=== PATIENT | female | born 1940 | race African-American/Black ===

== ENCOUNTER 2020-07-15 17:13 | Inpatient (IN) ==
[2020-07-15] MEDS ORDERED: SODIUM CHLORIDE 0.9% 1,000 ML IV STA (17:40)
[2020-07-15 17:45] LABS: Basophils % 0.3 % (0.0-0.8); Hematocrit 31.9 VOL% (35.7-47.0); Hemoglobin 10.2 GM/DL (12.0-16.0); Immature Granulocytes % 0.4 %; Immature Granulocytes Absolute 0.03 #; Lymphocytes % 12.4 % (21.3-54.2); Mean Corpuscular Volume 81.2 FL (87-102); Mean Platelet Volume 9.2 FL (9.6-12.0); Monocytes % 6.1 % (1.7-12.7); Neutrophils % 80.8 % (38.7-73.9); Platelet Count 251 T/CUMM (130-400); Red Blood Count 3.93 MC/CUMM (3.8-5.5); Red Cell Distribution Width 14.1 % (9.3-17.3); White Blood Count 7.7 T/CUMM (4-12)
[2020-07-15] MEDS ORDERED: DEXAMETHASONE 10 MG/1 ML VIAL ONE (18:13)
[2020-07-15] MEDS: DEXAMETHASONE 10 MG/1 ML VIAL IV SCH (18:18)
[2020-07-15 18:44] LABS: Albumin 2.9 G/DL (3.4-5.0); Bilirubin,Total 0.7 MG/DL (0.2-1.0); Calcium 9.2 MG/DL (8.5-10.1); Ferritin 160.3 ng/ml (8-252); Osmolality,Calculated 276.8 MOS/KG (273-304); Total Protein 7.4 G/DL (6.4-8.3)
[2020-07-15] MEDS ORDERED: AZITHROMYCIN INJ 500 MG in SODIUM CHLORIDE 0.9% 250 ML IV STA (18:50)
[2020-07-15] MEDS ORDERED: cefTRIAXone 1,000 MG in SODIUM CHLORIDE 0.9% 100 ML IV STA (18:51)
[2020-07-15] MEDS ORDERED: GLUCAGON 1 MG VIAL IM PRN ×3 (19:47→19:52)
[2020-07-15] MEDS ORDERED: DEXTROSE 50% 25 GM/50 ML VIAL IV PRN ×3 (19:47→19:52)
[2020-07-15] MEDS ORDERED: DEXTROSE 50% 25 GM/50 ML SYRINGE IV PRN (19:59)
[2020-07-15] MEDS ORDERED: ENOXAPARIN 40 MG/0.4 ML SYRINGE SUBCUT SCH (21:00)
[2020-07-15] MEDS: INSULIN LISPRO 100 UNIT/ML SUBCUT SCH (22:10)
[2020-07-16 07:10] LABS: Basophils % 0.3 % (0.0-0.8); Hemoglobin 10.3 GM/DL (12.0-16.0); Immature Granulocytes % 0.3 %; Immature Granulocytes Absolute 0.02 #; Lymphocytes # 0.7 10*3/uL (1.4-4.0); Lymphocytes % 9.3 % (21.3-54.2); Mean Corpuscular HGB Conc 31.2 GM/DL (32-36); Mean Corpuscular Volume 81.7 FL (87-102); Mean Platelet Volume 9.9 FL (9.6-12.0); Neutrophils % 84.1 % (38.7-73.9); Platelet Count 254 T/CUMM (130-400); Red Blood Count 4.04 MC/CUMM (3.8-5.5); Red Cell Distribution Width 14.3 % (9.3-17.3); White Blood Count 7.5 T/CUMM (4-12)
[2020-07-16 07:27] LABS: Calcium 9.3 MG/DL (8.5-10.1); Osmolality,Calculated 281.4 MOS/KG (273-304)
[2020-07-16] MEDS: DEXAMETHASONE 10 MG/1 ML VIAL IV SCH (09:16)
[2020-07-16] MEDS: INSULIN LISPRO 100 UNIT/ML SUBCUT SCH ×4 (10:16→20:27)
[2020-07-16 11:40] LABS: Calcium 9.9 MG/DL (8.5-10.1); Osmolality,Calculated 286.4 MOS/KG (273-304)
[2020-07-16] MEDS ORDERED: FUROSEMIDE 40 MG/4 ML VIAL IV ONE (11:54)
[2020-07-16 13:48] LABS: Bacteria,Urine Occasional /HPF (Few); Bilirubin,Urine Negative (Negative); Blood, Urine Negative (Negative); Glucose,Urine (UA) Negative (Negative); Hyaline Casts,Urine 8 /LPF (0-3); Ketones,Urine Negative (Negative); Mucus,Urine Occasional /LPF (Occasional); Nitrite,Urine Negative (Negative); Protein,Urine 100 MG/DL; RBC,Urine 1 /HPF (0-4); Urine Appearance CLEAR (Clear); Urine Color Yellow (Yellow); Urine Specific Gravity 1.017 (1.001-1.035); Urine Urobilinogen < 2.0 EU/DL (0.2-1.0); WBC,Urine <1 /HPF (0-6)
[2020-07-16] MEDS ORDERED: AZITHROMYCIN INJ 250 MG in SODIUM CHLORIDE 0.9% 250 ML IV SCH (20:00)
[2020-07-16 20:29] LABS: Basophils % 0.1 % (0.0-0.8); Hematocrit 34.8 VOL% (35.7-47.0); Immature Granulocytes % 0.5 %; Immature Granulocytes Absolute 0.06 #; Lymphocytes # 0.5 10*3/uL (1.4-4.0); Lymphocytes % 4.5 % (21.3-54.2); Mean Corpuscular HGB Conc 31.6 GM/DL (32-36); Mean Corpuscular Volume 81.1 FL (87-102); Mean Platelet Volume 9.2 FL (9.6-12.0); Monocytes % 2.1 % (1.7-12.7); Neutrophils % 92.8 % (38.7-73.9); Platelet Count 300 T/CUMM (130-400); Red Blood Count 4.29 MC/CUMM (3.8-5.5); Red Cell Distribution Width 14.4 % (9.3-17.3); White Blood Count 12.1 T/CUMM (4-12)
[2020-07-16] MEDS: cefTRIAXone 1,000 MG in SYRINGE 1 EACH IV SCH (20:39)
[2020-07-16] MEDS: ENOXAPARIN 80 MG/0.8 ML SYRINGE SUBCUT SCH (20:39)
[2020-07-16 20:47] LABS: Osmolality,Calculated 284.4 MOS/KG (273-304)
[2020-07-16 20:49] LABS: Eosinophils 1 % (0-10); Lymphocytes 4 % (20-55); Microcytosis 1+; Segmented Neutrophils 94 % (50-85); Total Cells Counted 100
[2020-07-16 20:50] LABS: Burr Cells 1+; Platelet Estimate Normal; Polychromasia Slight
[2020-07-16] MEDS: AZITHROMYCIN INJ 250 MG in SODIUM CHLORIDE 0.9% 250 ML IV SCH (20:55)
[2020-07-16] MEDS ORDERED: DILTIAZEM 25 MG/5 ML VIAL IV ONE (20:56)
[2020-07-16] MEDS: dilTIAZem Drip 125 MG/125 ML PREMIX IV SCH (22:05)
[2020-07-17 02:06] LABS: Basophils % 0.2 % (0.0-0.8); Hematocrit 35.9 VOL% (35.7-47.0); Hemoglobin 11.4 GM/DL (12.0-16.0); Immature Granulocytes % 0.4 %; Immature Granulocytes Absolute 0.05 #; Lymphocytes # 0.6 10*3/uL (1.4-4.0); Lymphocytes % 4.9 % (21.3-54.2); Mean Corpuscular HGB Conc 31.8 GM/DL (32-36); Mean Corpuscular Volume 80.9 FL (87-102); Mean Platelet Volume 9.4 FL (9.6-12.0); Neutrophils % 90.5 % (38.7-73.9); Platelet Count 303 T/CUMM (130-400); Red Blood Count 4.44 MC/CUMM (3.8-5.5); Red Cell Distribution Width 14.3 % (9.3-17.3); White Blood Count 11.2 T/CUMM (4-12)
[2020-07-17 02:26] LABS: Calcium 10.2 MG/DL (8.5-10.1); Ferritin 291.6 ng/ml (8-252); Osmolality,Calculated 283.5 MOS/KG (273-304)
[2020-07-17 04:38] LABS: ABG Base Excess -5.1 MMOL/L (-2.5-2.5); ABG HCO3 20.1 MMOL/L (20-26); ABG Oxygen Saturation 91.7 % (95-100); ABG PCO2 31.9 MM HG (35-48); ABG PH 7.385 (7.35-7.45); ABG PO2 69.4 MM HG (80-95); ABG TCO2 17.2 MMOL/L (23-27); Allen Test Positive
[2020-07-17] MEDS: dilTIAZem Drip 125 MG/125 ML PREMIX IV SCH ×2 (05:10→19:25)
[2020-07-17] MEDS: INSULIN LISPRO 100 UNIT/ML SUBCUT SCH ×4 (08:04→20:49)
[2020-07-17] MEDS: ASCORBIC ACID 500 MG TABLET PO SCH (08:35)
[2020-07-17] MEDS: ATORVASTATIN 40 MG TABLET PO SCH (08:36)
[2020-07-17] MEDS: THIAMINE 100 MG TABLET PO SCH (08:36)
[2020-07-17] MEDS: DEXAMETHASONE 10 MG/1 ML VIAL IV SCH (08:36)
[2020-07-17] MEDS: FUROSEMIDE 20 MG TABLET PO SCH (08:36)
[2020-07-17] MEDS: amLODIPine 10 MG TABLET PO SCH (08:36)
[2020-07-17] MEDS: CHOLECALCIFEROL 400 UNIT TABLET PO SCH (08:36)
[2020-07-17] MEDS: ZINC SULFATE 220 MG CAPSULE PO SCH (08:36)
[2020-07-17] MEDS ORDERED: INFLUENZA VIRUS VACCINE 0.5 ML SYRINGE IM ONE (09:00)
[2020-07-17] MEDS ORDERED: POTASSIUM CHLORIDE 20 MEQ TABLET PO SCH (09:00)
[2020-07-17] MEDS: ACETAMINOPHEN 325 MG TABLET PO PRN (11:15)
[2020-07-17] MEDS ORDERED: DIGOXIN 0.5 MG/2 ML AMP IV ONE ×2 (11:25→12:25)
[2020-07-17] MEDS ORDERED: CLORAZEPATE 3.75 MG TABLET PO ONE (20:13)
[2020-07-17] MEDS: ENOXAPARIN 80 MG/0.8 ML SYRINGE SUBCUT SCH (20:49)
[2020-07-17] MEDS: AZITHROMYCIN INJ 250 MG in SODIUM CHLORIDE 0.9% 250 ML IV SCH (20:50)
[2020-07-17] MEDS: cefTRIAXone 1,000 MG in SYRINGE 1 EACH IV SCH (20:50)
[2020-07-17] MEDS ORDERED: PNEUMOCOCCAL VACCINE (13 VALENT) 0.5 ML SYRINGE IM ONE (22:00)
[2020-07-17] MEDS ORDERED: ETOMIDATE 20 MG/10 ML VIAL IV ONE ×2 (22:17→22:31)
[2020-07-17] MEDS ORDERED: ROCURONIUM 100 MG/10 ML VIAL IV ONE ×2 (22:17→22:32)
[2020-07-17] MEDS ORDERED: propofoL 200 MG/20 ML VIAL IV ONE ×2 (22:31→22:33)
[2020-07-17 22:59] LABS: ABG Base Excess -4.3 MMOL/L (-2.5-2.5); ABG HCO3 20.9 MMOL/L (20-26); ABG Oxygen Saturation 98.6 % (95-100); ABG PCO2 34.3 MM HG (35-48); ABG PH 7.377 (7.35-7.45); ABG TCO2 18.2 MMOL/L (23-27)
[2020-07-17] MEDS: PHENYLEPHRINE DRIP 40 MG/250 ML PREMIX IV PRN (23:35)
[2020-07-17] MEDS ORDERED: LORazepam 2 MG/1 ML VIAL IV ONE (23:40)
[2020-07-18] MEDS ORDERED: LORazepam 2 MG/1 ML VIAL IV PRN (01:51)
[2020-07-18 03:27] LABS: ABG Base Excess -3.9 MMOL/L (-2.5-2.5); ABG HCO3 21.2 MMOL/L (20-26); ABG Oxygen Saturation 99.7 % (95-100); ABG PCO2 37.4 MM HG (35-48); ABG PH 7.359 (7.35-7.45); Allen Test Positive; Pt O2 Delivery Device Ventilator
[2020-07-18 06:01] LABS: Basophils % 0.1 % (0.0-0.8); Hematocrit 35.4 VOL% (35.7-47.0); Hemoglobin 11.2 GM/DL (12.0-16.0); Immature Granulocytes % 0.8 %; Immature Granulocytes Absolute 0.11 #; Lymphocytes # 0.8 10*3/uL (1.4-4.0); Lymphocytes % 5.8 % (21.3-54.2); Mean Corpuscular HGB Conc 31.6 GM/DL (32-36); Mean Corpuscular Volume 81.6 FL (87-102); Mean Platelet Volume 10.2 FL (9.6-12.0); Monocytes % 5.9 % (1.7-12.7); Neutrophils % 87.4 % (38.7-73.9); Platelet Count 403 T/CUMM (130-400); Red Blood Count 4.34 MC/CUMM (3.8-5.5); Red Cell Distribution Width 14.6 % (9.3-17.3); White Blood Count 14.3 T/CUMM (4-12)
[2020-07-18 06:53] LABS: Calcium 9.9 MG/DL (8.5-10.1); Osmolality,Calculated 286.5 MOS/KG (273-304)
[2020-07-18] MEDS ORDERED: SODIUM CHLORIDE 0.9% 1,000 ML IV ONE (07:06)
[2020-07-18] MEDS: PHENYLEPHRINE DRIP 40 MG/250 ML PREMIX IV PRN (07:09)
[2020-07-18] MEDS ORDERED: SODIUM CHLORIDE 0.9% 500 ML IV ONE (07:10)
[2020-07-18] MEDS: INSULIN LISPRO 100 UNIT/ML SUBCUT SCH ×3 (07:46→17:07)
[2020-07-18] MEDS: ZINC SULFATE 220 MG CAPSULE PO SCH (08:14)
[2020-07-18] MEDS: POTASSIUM CHLORIDE 20 MEQ/15 ML UDCUP NG SCH (08:14)
[2020-07-18] MEDS: ATORVASTATIN 40 MG TABLET PO SCH (08:14)
[2020-07-18] MEDS: THIAMINE 100 MG TABLET PO SCH (08:15)
[2020-07-18] MEDS: FUROSEMIDE 20 MG TABLET PO SCH (08:15)
[2020-07-18] MEDS: DEXAMETHASONE 10 MG/1 ML VIAL IV SCH (08:15)
[2020-07-18] MEDS: CHOLECALCIFEROL 400 UNIT TABLET PO SCH (08:15)
[2020-07-18] MEDS: ASCORBIC ACID 500 MG TABLET PO SCH (08:15)
[2020-07-18] MEDS: amLODIPine 10 MG TABLET PO SCH ×2 (08:16→13:19)
[2020-07-18] MEDS: fentaNYL INJ 1,250 MCG in SODIUM CHLORIDE 0.9% 225 ML IV PRN ×3 (08:44→21:16)
[2020-07-18] MEDS: DIGOXIN 0.125 MG TABLET PO SCH (12:40)
[2020-07-18] MEDS: cefTRIAXone 1,000 MG in SYRINGE 1 EACH IV SCH (19:44)
[2020-07-18] MEDS: ENOXAPARIN 80 MG/0.8 ML SYRINGE SUBCUT SCH ×2 (19:44→20:12)
[2020-07-18] MEDS: dilTIAZem Drip 125 MG/125 ML PREMIX IV SCH (20:08)
[2020-07-18] MEDS: AZITHROMYCIN INJ 250 MG in SODIUM CHLORIDE 0.9% 250 ML IV SCH (20:12)
[2020-07-19] MEDS: INSULIN LISPRO 100 UNIT/ML SUBCUT SCH ×4 (00:08→17:23)
[2020-07-19 03:49] LABS: ABG Base Excess -5.2 MMOL/L (-2.5-2.5); ABG HCO3 20.1 MMOL/L (20-26); ABG Oxygen Saturation 98.4 % (95-100); ABG PCO2 41.3 MM HG (35-48); ABG TCO2 18.9 MMOL/L (23-27); Allen Test Positive; Pt O2 Delivery Device Ventilator
[2020-07-19 04:15] LABS: Basophils % 0.1 % (0.0-0.8); Hematocrit 32.3 VOL% (35.7-47.0); Immature Granulocytes % 0.6 %; Immature Granulocytes Absolute 0.05 #; Lymphocytes # 0.6 10*3/uL (1.4-4.0); Lymphocytes % 6.9 % (21.3-54.2); Mean Corpuscular Volume 84.6 FL (87-102); Mean Platelet Volume 9.7 FL (9.6-12.0); Neutrophils % 87.4 % (38.7-73.9); Platelet Count 318 T/CUMM (130-400); Red Blood Count 3.82 MC/CUMM (3.8-5.5); Red Cell Distribution Width 14.8 % (9.3-17.3); White Blood Count 8.8 T/CUMM (4-12)
[2020-07-19 04:35] LABS: Calcium 9.6 MG/DL (8.5-10.1); Osmolality,Calculated 292.1 MOS/KG (273-304)
[2020-07-19 04:38] LABS: Ferritin 1091.3 ng/ml (8-252)
[2020-07-19] MEDS: ATORVASTATIN 40 MG TABLET PO SCH (08:15)
[2020-07-19] MEDS: ZINC SULFATE 220 MG CAPSULE PO SCH (08:15)
[2020-07-19] MEDS: THIAMINE 100 MG TABLET PO SCH (08:15)
[2020-07-19] MEDS: POTASSIUM CHLORIDE 20 MEQ/15 ML UDCUP NG SCH (08:15)
[2020-07-19] MEDS: ASCORBIC ACID 500 MG TABLET PO SCH (08:15)
[2020-07-19] MEDS: CHOLECALCIFEROL 400 UNIT TABLET PO SCH (08:15)
[2020-07-19] MEDS: FUROSEMIDE 20 MG TABLET PO SCH (08:15)
[2020-07-19] MEDS: amLODIPine 10 MG TABLET PO SCH (08:15)
[2020-07-19] MEDS: DEXAMETHASONE 10 MG/1 ML VIAL IV SCH (08:16)
[2020-07-19] MEDS ORDERED: SODIUM CHLORIDE 0.9% 1,000 ML IV PRN (11:17)
[2020-07-19] MEDS: DIGOXIN 0.125 MG TABLET PO SCH (12:03)
[2020-07-19] MEDS: fentaNYL INJ 1,250 MCG in SODIUM CHLORIDE 0.9% 225 ML IV PRN (19:17)
[2020-07-19] MEDS: ENOXAPARIN 80 MG/0.8 ML SYRINGE SUBCUT SCH (20:03)
[2020-07-19] MEDS: AZITHROMYCIN INJ 250 MG in SODIUM CHLORIDE 0.9% 250 ML IV SCH (20:03)
[2020-07-19] MEDS: cefTRIAXone 1,000 MG in SYRINGE 1 EACH IV SCH (20:45)
[2020-07-19] MEDS: dilTIAZem Drip 125 MG/125 ML PREMIX IV SCH (21:15)
[2020-07-20] MEDS: INSULIN LISPRO 100 UNIT/ML SUBCUT SCH ×5 (00:33→23:48)
[2020-07-20 05:07] LABS: Basophils % 0.1 % (0.0-0.8); Hematocrit 34.1 VOL% (35.7-47.0); Hemoglobin 10.6 GM/DL (12.0-16.0); Immature Granulocytes % 1.4 %; Immature Granulocytes Absolute 0.17 #; Lymphocytes # 0.9 10*3/uL (1.4-4.0); Lymphocytes % 7.2 % (21.3-54.2); Mean Corpuscular HGB Conc 31.1 GM/DL (32-36); Mean Corpuscular Volume 83.4 FL (87-102); Mean Platelet Volume 10.1 FL (9.6-12.0); Monocytes % 5.2 % (1.7-12.7); NRBC # 0.02 10*3/uL; Neutrophils % 86.1 % (38.7-73.9); Platelet Count 389 T/CUMM (130-400); Red Blood Count 4.09 MC/CUMM (3.8-5.5); White Blood Count 12.6 T/CUMM (4-12)
[2020-07-20] MEDS: fentaNYL INJ 1,250 MCG in SODIUM CHLORIDE 0.9% 225 ML IV PRN ×3 (05:16→20:40)
[2020-07-20 05:23] LABS: ABG Base Excess -4.6 MMOL/L (-2.5-2.5); ABG HCO3 20.6 MMOL/L (20-26); ABG Oxygen Saturation 96.3 % (95-100); ABG PCO2 45.6 MM HG (35-48); ABG PO2 96.8 MM HG (80-95); ABG TCO2 20.3 MMOL/L (23-27); Allen Test Positive; Pt O2 Delivery Device Ventilator
[2020-07-20 05:24] LABS: Calcium 9.2 MG/DL (8.5-10.1)
[2020-07-20 05:48] LABS: Ferritin 1150.8 ng/ml (8-252)
[2020-07-20] MEDS: ZINC SULFATE 220 MG CAPSULE PO SCH (08:17)
[2020-07-20] MEDS: FUROSEMIDE 20 MG TABLET PO SCH (08:18)
[2020-07-20] MEDS: amLODIPine 10 MG TABLET PO SCH (08:18)
[2020-07-20] MEDS: ATORVASTATIN 40 MG TABLET PO SCH (08:18)
[2020-07-20] MEDS: THIAMINE 100 MG TABLET PO SCH (08:18)
[2020-07-20] MEDS: CHOLECALCIFEROL 400 UNIT TABLET PO SCH (08:18)
[2020-07-20] MEDS: ACETAMINOPHEN 325 MG TABLET PO PRN (08:19)
[2020-07-20] MEDS: ASCORBIC ACID 500 MG TABLET PO SCH (08:19)
[2020-07-20] MEDS: DEXAMETHASONE 10 MG/1 ML VIAL IV SCH (08:20)
[2020-07-20] MEDS ORDERED: SODIUM CHLORIDE 0.9% 1,000 ML IV ONE (11:19)
[2020-07-20] MEDS: DIGOXIN 0.125 MG TABLET PO SCH (13:18)
[2020-07-20] MEDS: VANCOMYCIN INJ 1,250 MG in SODIUM CHLORIDE 0.9% 250 ML IV SCH (14:42)
[2020-07-20] MEDS: dilTIAZem Drip 125 MG/125 ML PREMIX IV SCH (20:41)
[2020-07-20] MEDS: ENOXAPARIN 80 MG/0.8 ML SYRINGE SUBCUT SCH (20:51)
[2020-07-20] MEDS: cefTRIAXone 1,000 MG in SYRINGE 1 EACH IV SCH (20:51)
[2020-07-20] MEDS: AMIODARONE 200 MG TABLET PO SCH (20:51)
[2020-07-21] MEDS: fentaNYL INJ 1,250 MCG in SODIUM CHLORIDE 0.9% 225 ML IV PRN ×3 (03:35→12:55)
[2020-07-21 04:33] LABS: Allen Test Positive; Pt O2 Delivery Device Ventilator
[2020-07-21 04:35] LABS: ABG Base Excess -4.2 MMOL/L (-2.5-2.5); ABG HCO3 20.8 MMOL/L (20-26); ABG Oxygen Saturation 92.4 % (95-100); ABG PCO2 43.2 MM HG (35-48); ABG PH 7.311 (7.35-7.45); ABG PO2 72.2 MM HG (80-95); ABG TCO2 20.2 MMOL/L (23-27)
[2020-07-21 04:49] LABS: Basophils % 0.1 % (0.0-0.8); Eosinophils % 0.2 % (0.00-10.9); Hematocrit 31.2 VOL% (35.7-47.0); Hemoglobin 9.5 GM/DL (12.0-16.0); Immature Granulocytes % 2.3 %; Immature Granulocytes Absolute 0.24 #; Lymphocytes # 0.7 10*3/uL (1.4-4.0); Lymphocytes % 6.4 % (21.3-54.2); Mean Corpuscular HGB Conc 30.4 GM/DL (32-36); Mean Corpuscular Volume 83.6 FL (87-102); Mean Platelet Volume 9.5 FL (9.6-12.0); Monocytes % 3.9 % (1.7-12.7); NRBC # 0.02 10*3/uL; Neutrophils % 87.1 % (38.7-73.9); Platelet Count 334 T/CUMM (130-400); Red Blood Count 3.73 MC/CUMM (3.8-5.5); Red Cell Distribution Width 15.4 % (9.3-17.3); White Blood Count 10.5 T/CUMM (4-12)
[2020-07-21 05:21] LABS: Calcium 8.8 MG/DL (8.5-10.1); Osmolality,Calculated 302.6 MOS/KG (273-304)
[2020-07-21] MEDS: INSULIN LISPRO 100 UNIT/ML SUBCUT SCH ×3 (06:07→18:09)
[2020-07-21] MEDS: CHOLECALCIFEROL 400 UNIT TABLET PO SCH (08:36)
[2020-07-21] MEDS: amLODIPine 10 MG TABLET PO SCH (08:36)
[2020-07-21] MEDS: ATORVASTATIN 40 MG TABLET PO SCH (08:36)
[2020-07-21] MEDS: FUROSEMIDE 20 MG TABLET PO SCH (08:36)
[2020-07-21] MEDS: ASCORBIC ACID 500 MG TABLET PO SCH (08:36)
[2020-07-21] MEDS: ZINC SULFATE 220 MG CAPSULE PO SCH (08:36)
[2020-07-21] MEDS: THIAMINE 100 MG TABLET PO SCH (08:36)
[2020-07-21] MEDS: AMIODARONE 200 MG TABLET PO SCH ×2 (08:36→20:30)
[2020-07-21] MEDS: DEXAMETHASONE 10 MG/1 ML VIAL IV SCH (08:37)
[2020-07-21] MEDS ORDERED: METOPROLOL TARTRATE 5 MG/5 ML VIAL IV ONE (08:44)
[2020-07-21] MEDS: VANCOMYCIN INJ 1,250 MG in SODIUM CHLORIDE 0.9% 250 ML IV SCH (09:51)
[2020-07-21] MEDS: METOPROLOL TARTRATE 25 MG TABLET PO SCH ×2 (12:20→20:30)
[2020-07-21] MEDS: fentaNYL INJ 2,500 MCG in SODIUM CHLORIDE 0.9% 450 ML IV PRN ×2 (12:55→20:20)
[2020-07-21] MEDS: DIGOXIN 0.125 MG TABLET PO SCH (15:08)
[2020-07-21] MEDS: ROCURONIUM 500 MG in SODIUM CHLORIDE 0.9% 500 ML IV PRN (16:00)
[2020-07-21] MEDS: cefTRIAXone 1,000 MG in SYRINGE 1 EACH IV SCH (20:30)
[2020-07-21] MEDS: ENOXAPARIN 80 MG/0.8 ML SYRINGE SUBCUT SCH (20:30)
[2020-07-21] MEDS: dilTIAZem Drip 125 MG/125 ML PREMIX IV SCH (21:36)
[2020-07-22] MEDS: INSULIN LISPRO 100 UNIT/ML SUBCUT SCH ×4 (00:32→17:56)
[2020-07-22] MEDS: fentaNYL INJ 2,500 MCG in SODIUM CHLORIDE 0.9% 450 ML IV PRN ×4 (02:15→21:27)
[2020-07-22 04:00] LABS: Basophils % 0.1 % (0.0-0.8); Eosinophils # 0.1 10*3/uL (0.0-0.87); Eosinophils % 1.2 % (0.00-10.9); Hematocrit 28.3 VOL% (35.7-47.0); Hemoglobin 8.8 GM/DL (12.0-16.0); Immature Granulocytes % 5.5 %; Lymphocytes # 0.7 10*3/uL (1.4-4.0); Lymphocytes % 6.5 % (21.3-54.2); Mean Corpuscular HGB Conc 31.1 GM/DL (32-36); Mean Platelet Volume 9.5 FL (9.6-12.0); Monocytes % 2.6 % (1.7-12.7); NRBC # 0.02 10*3/uL; Neutrophils % 84.1 % (38.7-73.9); Platelet Count 283 T/CUMM (130-400); Red Blood Count 3.29 MC/CUMM (3.8-5.5); White Blood Count 10.9 T/CUMM (4-12)
[2020-07-22 04:20] LABS: Calcium 8.3 MG/DL (8.5-10.1); Osmolality,Calculated 301.7 MOS/KG (273-304)
[2020-07-22 04:21] LABS: Band Neutrophils 2 % (0-10); Lymphocytes 4 % (20-55); Platelet Estimate Adequate; Segmented Neutrophils 90 % (50-85); Total Cells Counted 100
[2020-07-22 04:22] LABS: Hypochromasia 1+; Microcytosis 1+
[2020-07-22 04:26] LABS: ABG Base Excess -6.6 MMOL/L (-2.5-2.5); ABG HCO3 20.4 MMOL/L (20-26); ABG Oxygen Saturation 98.2 % (95-100); ABG PCO2 48.1 MM HG (35-48); ABG PH 7.246 (7.35-7.45); ABG PO2 132.9 MM HG (80-95); ABG TCO2 21.9 MMOL/L (23-27)
[2020-07-22] MEDS: ROCURONIUM 500 MG in SODIUM CHLORIDE 0.9% 500 ML IV PRN ×2 (04:45→18:48)
[2020-07-22 04:50] LABS: Ferritin 989.7 ng/ml (8-252)
[2020-07-22] MEDS: THIAMINE 100 MG TABLET PO SCH (08:24)
[2020-07-22] MEDS: AMIODARONE 200 MG TABLET PO SCH ×2 (08:24→21:03)
[2020-07-22] MEDS: ZINC SULFATE 220 MG CAPSULE PO SCH (08:24)
[2020-07-22] MEDS: FUROSEMIDE 20 MG TABLET PO SCH (08:25)
[2020-07-22] MEDS: ASCORBIC ACID 500 MG TABLET PO SCH (08:25)
[2020-07-22] MEDS: METOPROLOL TARTRATE 25 MG TABLET PO SCH ×2 (08:25→21:03)
[2020-07-22] MEDS: ATORVASTATIN 40 MG TABLET PO SCH (08:25)
[2020-07-22] MEDS: amLODIPine 10 MG TABLET PO SCH (08:25)
[2020-07-22] MEDS: DEXAMETHASONE 10 MG/1 ML VIAL IV SCH (08:26)
[2020-07-22] MEDS: CHOLECALCIFEROL 400 UNIT TABLET PO SCH (08:30)
[2020-07-22] MEDS: DIGOXIN 0.125 MG TABLET PO SCH (12:29)
[2020-07-22] MEDS: ENOXAPARIN 100 MG/ML SYRINGE SUBCUT SCH (13:17)
[2020-07-22] MEDS: PHENYLEPHRINE DRIP 40 MG/250 ML PREMIX IV PRN (13:58)
[2020-07-22] MEDS: cefTRIAXone 1,000 MG in SYRINGE 1 EACH IV SCH (19:48)
[2020-07-23] MEDS: INSULIN LISPRO 100 UNIT/ML SUBCUT SCH ×4 (00:25→17:37)
[2020-07-23] MEDS: ENOXAPARIN 100 MG/ML SYRINGE SUBCUT SCH ×2 (00:26→11:59)
[2020-07-23 03:49] LABS: Allen Test Positive; Pt O2 Delivery Device Ventilator
[2020-07-23 03:50] LABS: ABG Base Excess -8.8 MMOL/L (-2.5-2.5); ABG HCO3 17.3 MMOL/L (20-26); ABG Oxygen Saturation 99.5 % (95-100); ABG PCO2 46.4 MM HG (35-48); ABG PH 7.216 (7.35-7.45); ABG TCO2 17.7 MMOL/L (23-27)
[2020-07-23] MEDS: fentaNYL INJ 2,500 MCG in SODIUM CHLORIDE 0.9% 450 ML IV PRN ×3 (03:53→16:50)
[2020-07-23] MEDS: PHENYLEPHRINE DRIP 40 MG/250 ML PREMIX IV PRN ×2 (05:54→21:30)
[2020-07-23] MEDS: ROCURONIUM 500 MG in SODIUM CHLORIDE 0.9% 500 ML IV PRN (06:12)
[2020-07-23 06:34] LABS: Basophils # 0.1 10*3/uL (0.0-0.2); Basophils % 0.4 % (0.0-0.8); Eosinophils # 0.3 10*3/uL (0.0-0.87); Eosinophils % 2.3 % (0.00-10.9); Hematocrit 31.3 VOL% (35.7-47.0); Hemoglobin 9.4 GM/DL (12.0-16.0); Immature Granulocytes % 7.3 %; Immature Granulocytes Absolute 1.03 #; Lymphocytes # 0.9 10*3/uL (1.4-4.0); Lymphocytes % 6.6 % (21.3-54.2); Mean Corpuscular Volume 86.7 FL (87-102); Mean Platelet Volume 10.1 FL (9.6-12.0); Monocytes % 2.4 % (1.7-12.7); NRBC # 0.08 10*3/uL; Platelet Count 359 T/CUMM (130-400); Red Blood Count 3.61 MC/CUMM (3.8-5.5); Red Cell Distribution Width 16.6 % (9.3-17.3)
[2020-07-23 06:53] LABS: Calcium 8.8 MG/DL (8.5-10.1)
[2020-07-23 07:15] LABS: Band Neutrophils 2 % (0-10); Eosinophils 6 % (0-10); Hypochromasia Slight; Lymphocytes 6 % (20-55); Microcytosis 1+; Myelocytes 1 %; Ovalocytes Slight; Platelet Estimate Adequate; Segmented Neutrophils 85 % (50-85); Total Cells Counted 100
[2020-07-23] MEDS ORDERED: SODIUM BICARBONATE 50 MEQ/50 ML VIAL IV ONE (08:07)
[2020-07-23] MEDS: ATORVASTATIN 40 MG TABLET PO SCH (09:30)
[2020-07-23] MEDS: DEXAMETHASONE 10 MG/1 ML VIAL IV SCH (09:30)
[2020-07-23] MEDS: ZINC SULFATE 220 MG CAPSULE PO SCH (09:30)
[2020-07-23] MEDS: CHOLECALCIFEROL 400 UNIT TABLET PO SCH (09:30)
[2020-07-23] MEDS: ACETAMINOPHEN 325 MG TABLET PO PRN (09:30)
[2020-07-23] MEDS: ASCORBIC ACID 500 MG TABLET PO SCH (09:30)
[2020-07-23] MEDS: THIAMINE 100 MG TABLET PO SCH (09:30)
[2020-07-23] MEDS: METOPROLOL TARTRATE 25 MG TABLET PO SCH ×2 (09:30→20:31)
[2020-07-23] MEDS: AMIODARONE 200 MG TABLET PO SCH ×2 (09:30→20:31)
[2020-07-23 11:58] LABS: ABG Base Excess -7.4 MMOL/L (-2.5-2.5); ABG HCO3 18.4 MMOL/L (20-26); ABG Oxygen Saturation 99.2 % (95-100); ABG PCO2 46.7 MM HG (35-48); ABG PH 7.236 (7.35-7.45); ABG TCO2 18.7 MMOL/L (23-27)
[2020-07-23 12:00] LABS: ABG PO2 188.7 MM HG (80-95)
[2020-07-23] MEDS: DIGOXIN 0.125 MG TABLET PO SCH (12:00)
[2020-07-23] MEDS: FLUCONAZOLE 200 MG TABLET PO SCH (15:52)
[2020-07-23] MEDS: SODIUM BICARBONATE 650 MG TABLET PO SCH ×2 (15:52→20:31)
[2020-07-23 23:36] LABS: Bacteria,Urine Occasional /HPF (Few); Bilirubin,Urine Negative (Negative); Blood, Urine Negative (Negative); Glucose,Urine (UA) Negative (Negative); Hyaline Casts,Urine 1 /LPF (0-3); Ketones,Urine Negative (Negative); Mucus,Urine Occasional /LPF (Occasional); Nitrite,Urine Negative (Negative); Protein,Urine 30 MG/DL; RBC,Urine 2 /HPF (0-4); Squamous Epithelial Cell,Urine Occasional /HPF (0-10); Urine Appearance Slightly Hazy (Clear); Urine Color Yellow (Yellow); Urine Specific Gravity 1.017 (1.001-1.035); Urine Urobilinogen < 2.0 EU/DL (0.2-1.0); WBC,Urine 2 /HPF (0-6)
[2020-07-24] MEDS: INSULIN LISPRO 100 UNIT/ML SUBCUT SCH ×4 (00:29→17:44)
[2020-07-24] MEDS: ENOXAPARIN 100 MG/ML SYRINGE SUBCUT SCH ×2 (01:09→12:39)
[2020-07-24] MEDS: fentaNYL INJ 2,500 MCG in SODIUM CHLORIDE 0.9% 450 ML IV PRN ×2 (03:00→23:44)
[2020-07-24 04:08] LABS: Basophils % 0.2 % (0.0-0.8); Eosinophils # 0.2 10*3/uL (0.0-0.87); Eosinophils % 0.9 % (0.00-10.9); Hematocrit 30.6 VOL% (35.7-47.0); Hemoglobin 9.5 GM/DL (12.0-16.0); Immature Granulocytes % 6.7 %; Immature Granulocytes Absolute 1.21 #; Lymphocytes # 1.5 10*3/uL (1.4-4.0); Lymphocytes % 8.2 % (21.3-54.2); Monocytes % 3.7 % (1.7-12.7); NRBC # 0.07 10*3/uL; Neutrophils % 80.3 % (38.7-73.9); Platelet Count 372 T/CUMM (130-400); Red Cell Distribution Width 17.1 % (9.3-17.3); White Blood Count 17.9 T/CUMM (4-12)
[2020-07-24 04:22] LABS: ABG HCO3 19.3 MMOL/L (20-26); ABG Oxygen Saturation 91.3 % (95-100); ABG PCO2 53.8 MM HG (35-48); ABG PO2 74.3 MM HG (80-95); Allen Test Positive; Pt O2 Delivery Device Ventilator
[2020-07-24 04:23] LABS: ABG PH 7.173 (7.35-7.45)
[2020-07-24] MEDS ORDERED: SODIUM BICARBONATE 50 MEQ/50 ML VIAL IV ONE (04:27)
[2020-07-24 04:29] LABS: Band Neutrophils 2 % (0-10); Eosinophils 2 % (0-10); Lymphocytes 10 % (20-55); Nucleated Red Blood Cells 1 (0-5); Segmented Neutrophils 82 % (50-85); Total Cells Counted 100
[2020-07-24 04:30] LABS: Hypochromasia 1+; Microcytosis 1+; Ovalocytes Slight; Platelet Estimate Adequate
[2020-07-24 04:59] LABS: Calcium 8.5 MG/DL (8.5-10.1); Osmolality,Calculated 313.7 MOS/KG (273-304)
[2020-07-24 07:27] LABS: ABG Base Excess -7.1 MMOL/L (-2.5-2.5); ABG HCO3 18.6 MMOL/L (20-26); ABG Oxygen Saturation 93.9 % (95-100); ABG PCO2 54.8 MM HG (35-48); ABG PO2 84.3 MM HG (80-95); ABG TCO2 20.1 MMOL/L (23-27)
[2020-07-24 07:30] LABS: ABG PH 7.197 (7.35-7.45)
[2020-07-24] MEDS ORDERED: SODIUM POLYSTYRENE SULFATE 15 GM/60 ML BOTTLE PO ONE (07:35)
[2020-07-24] MEDS: THIAMINE 100 MG TABLET PO SCH (08:17)
[2020-07-24] MEDS: SODIUM BICARBONATE 650 MG TABLET PO SCH ×2 (08:17→20:18)
[2020-07-24] MEDS: DEXAMETHASONE 10 MG/1 ML VIAL IV SCH (08:17)
[2020-07-24] MEDS: ASCORBIC ACID 500 MG TABLET PO SCH (08:17)
[2020-07-24] MEDS: ATORVASTATIN 40 MG TABLET PO SCH (08:17)
[2020-07-24] MEDS: CHOLECALCIFEROL 400 UNIT TABLET PO SCH (08:17)
[2020-07-24] MEDS: ZINC SULFATE 220 MG CAPSULE PO SCH (08:18)
[2020-07-24] MEDS: METOPROLOL TARTRATE 25 MG TABLET PO SCH ×2 (08:18→20:18)
[2020-07-24] MEDS: AMIODARONE 200 MG TABLET PO SCH ×2 (08:18→20:18)
[2020-07-24] MEDS: FLUCONAZOLE 200 MG TABLET PO SCH (09:11)
[2020-07-24] MEDS: SODIUM BICARB INJ 100 MEQ in DEXTROSE 5% 1,000 ML IV SCH (09:30)
[2020-07-24] MEDS: FAMOTIDINE 20 MG/2 ML VIAL IV SCH (09:30)
[2020-07-24] MEDS: DIGOXIN 0.125 MG TABLET PO SCH (12:39)
[2020-07-24] MEDS: PIPERACILLIN/TAZOBACTAM 3,375 MG in SODIUM CHLORIDE 0.9% 100 ML IV SCH (17:43)
[2020-07-24] MEDS: methylPREDNISolone SOD SUC 40 MG/1 ML VIAL IV SCH (17:43)
[2020-07-25] MEDS: PIPERACILLIN/TAZOBACTAM 3,375 MG in SODIUM CHLORIDE 0.9% 100 ML IV SCH ×3 (00:45→16:49)
[2020-07-25] MEDS: INSULIN LISPRO 100 UNIT/ML SUBCUT SCH ×4 (00:45→17:30)
[2020-07-25] MEDS: methylPREDNISolone SOD SUC 40 MG/1 ML VIAL IV SCH ×3 (00:45→16:50)
[2020-07-25] MEDS: ENOXAPARIN 100 MG/ML SYRINGE SUBCUT SCH (00:45)
[2020-07-25 04:34] LABS: ABG Base Excess -4.3 MMOL/L (-2.5-2.5); ABG HCO3 20.8 MMOL/L (20-26); ABG Oxygen Saturation 94.9 % (95-100); ABG PCO2 58.1 MM HG (35-48); ABG TCO2 22.6 MMOL/L (23-27); Allen Test Positive; Pt O2 Delivery Device Ventilator
[2020-07-25 04:46] LABS: Basophils % 0.2 % (0.0-0.8); Eosinophils % 0.1 % (0.00-10.9); Hematocrit 25.7 VOL% (35.7-47.0); Hemoglobin 8.2 GM/DL (12.0-16.0); Immature Granulocytes Absolute 0.85 #; Lymphocytes # 0.6 10*3/uL (1.4-4.0); Lymphocytes % 3.4 % (21.3-54.2); Mean Corpuscular HGB Conc 31.9 GM/DL (32-36); Mean Corpuscular Volume 82.6 FL (87-102); Mean Platelet Volume 11.1 FL (9.6-12.0); Monocytes % 3.3 % (1.7-12.7); NRBC # 0.03 10*3/uL; Platelet Count 262 T/CUMM (130-400); Red Blood Count 3.11 MC/CUMM (3.8-5.5); Red Cell Distribution Width 17.2 % (9.3-17.3)
[2020-07-25 05:03] LABS: Band Neutrophils 1 % (0-10); Hypochromasia 1+; Lymphocytes 4 % (20-55); Microcytosis Slight; Ovalocytes Slight; Platelet Estimate Adequate; Segmented Neutrophils 93 % (50-85); Total Cells Counted 100
[2020-07-25 05:18] LABS: Calcium 8.6 MG/DL (8.5-10.1); Osmolality,Calculated 318.6 MOS/KG (273-304)
[2020-07-25] MEDS: SODIUM BICARBONATE 650 MG TABLET PO SCH ×2 (08:02→20:50)
[2020-07-25] MEDS: ASCORBIC ACID 500 MG TABLET PO SCH (08:02)
[2020-07-25] MEDS: CHOLECALCIFEROL 400 UNIT TABLET PO SCH (08:02)
[2020-07-25] MEDS: FLUCONAZOLE 200 MG TABLET PO SCH (08:03)
[2020-07-25] MEDS: THIAMINE 100 MG TABLET PO SCH (08:03)
[2020-07-25] MEDS: AMIODARONE 200 MG TABLET PO SCH ×2 (08:03→20:50)
[2020-07-25] MEDS: ZINC SULFATE 220 MG CAPSULE PO SCH (08:03)
[2020-07-25] MEDS: METOPROLOL TARTRATE 25 MG TABLET PO SCH ×2 (08:03→20:49)
[2020-07-25] MEDS: ATORVASTATIN 40 MG TABLET PO SCH (08:03)
[2020-07-25] MEDS: SODIUM BICARB INJ 100 MEQ in DEXTROSE 5% 1,000 ML IV SCH (09:02)
[2020-07-25] MEDS: FAMOTIDINE 20 MG/2 ML VIAL IV SCH (09:56)
[2020-07-25] MEDS: APIXABAN 5 MG TABLET NG SCH ×2 (09:57→20:49)
[2020-07-25] MEDS: DIGOXIN 0.125 MG TABLET PO SCH (12:38)
[2020-07-25] MEDS ORDERED: INSULIN GLARGINE 100 UNIT/ML SUBCUT SCH (21:00)
[2020-07-25] MEDS: fentaNYL INJ 2,500 MCG in SODIUM CHLORIDE 0.9% 450 ML IV PRN (21:56)
[2020-07-26] MEDS: INSULIN LISPRO 100 UNIT/ML SUBCUT SCH ×4 (00:37→17:41)
[2020-07-26] MEDS: PIPERACILLIN/TAZOBACTAM 3,375 MG in SODIUM CHLORIDE 0.9% 100 ML IV SCH ×3 (00:38→16:33)
[2020-07-26] MEDS: methylPREDNISolone SOD SUC 40 MG/1 ML VIAL IV SCH ×3 (00:38→16:32)
[2020-07-26 03:59] LABS: Basophils % 0.1 % (0.0-0.8); Eosinophils % 0.1 % (0.00-10.9); Hematocrit 21.2 VOL% (35.7-47.0); Immature Granulocytes % 3.5 %; Immature Granulocytes Absolute 0.58 #; Lymphocytes # 0.6 10*3/uL (1.4-4.0); Lymphocytes % 3.8 % (21.3-54.2); Mean Corpuscular Volume 81.9 FL (87-102); Mean Platelet Volume 10.7 FL (9.6-12.0); Monocytes % 2.9 % (1.7-12.7); NRBC # 0.05 10*3/uL; Neutrophils % 89.6 % (38.7-73.9); Platelet Count 293 T/CUMM (130-400); Red Blood Count 2.59 MC/CUMM (3.8-5.5); Red Cell Distribution Width 16.8 % (9.3-17.3); White Blood Count 16.7 T/CUMM (4-12)
[2020-07-26 04:16] LABS: Calcium 8.3 MG/DL (8.5-10.1); Osmolality,Calculated 318.7 MOS/KG (273-304)
[2020-07-26 04:23] LABS: Band Neutrophils 6 % (0-10); Hypochromasia 2+; Lymphocytes 4 % (20-55); Microcytosis 1+; Myelocytes 1 %; Ovalocytes Slight; Platelet Estimate Adequate; Segmented Neutrophils 86 % (50-85); Total Cells Counted 100
[2020-07-26 04:26] LABS: ABG Base Excess -2.5 MMOL/L (-2.5-2.5); ABG Oxygen Saturation 79.2 % (95-100); ABG PCO2 63.6 MM HG (35-48); ABG PH 7.222 (7.35-7.45); ABG PO2 53.7 MM HG (80-95); ABG TCO2 24.7 MMOL/L (23-27); Allen Test Positive; Pt O2 Delivery Device Ventilator
[2020-07-26] MEDS: SODIUM BICARB INJ 100 MEQ in DEXTROSE 5% 1,000 ML IV SCH ×2 (05:04→09:08)
[2020-07-26 07:00] LABS: Bilirubin,Total 0.4 MG/DL (0.2-1.0); Calcium 8.5 MG/DL (8.5-10.1); Osmolality,Calculated 324.3 MOS/KG (273-304); Total Protein 5.9 G/DL (6.4-8.3)
[2020-07-26] MEDS ORDERED: SODIUM CHLORIDE 0.9% 1,000 ML IV PRN (07:26)
[2020-07-26] MEDS: SODIUM BICARBONATE 650 MG TABLET PO SCH ×2 (08:35→20:59)
[2020-07-26] MEDS: CHOLECALCIFEROL 400 UNIT TABLET PO SCH (08:35)
[2020-07-26] MEDS: APIXABAN 5 MG TABLET NG SCH (08:35)
[2020-07-26] MEDS: ASCORBIC ACID 500 MG TABLET PO SCH (08:35)
[2020-07-26] MEDS: THIAMINE 100 MG TABLET PO SCH (08:35)
[2020-07-26] MEDS: AMIODARONE 200 MG TABLET PO SCH ×2 (08:35→21:00)
[2020-07-26] MEDS: ATORVASTATIN 40 MG TABLET PO SCH (08:35)
[2020-07-26] MEDS: ZINC SULFATE 220 MG CAPSULE PO SCH (08:35)
[2020-07-26] MEDS: METOPROLOL TARTRATE 25 MG TABLET PO SCH ×2 (08:36→21:00)
[2020-07-26] MEDS: FAMOTIDINE 20 MG/2 ML VIAL IV SCH (08:41)
[2020-07-26] MEDS: FLUCONAZOLE 200 MG TABLET PO SCH (10:53)
[2020-07-26] MEDS: POLYETHYLENE GLYCOL POWDER 17 GM PACK PO SCH (12:11)
[2020-07-26] MEDS: DIGOXIN 0.125 MG TABLET PO SCH (12:11)
[2020-07-26 15:19] LABS: Hematocrit 26.2 VOL% (35.7-47.0)
[2020-07-26 15:20] LABS: Hemoglobin 8.7 GM/DL (12.0-16.0)
[2020-07-26] MEDS ORDERED: PANTOPRAZOLE 40 MG VIAL IV ONE (17:31)
[2020-07-26] MEDS: PANTOPRAZOLE 40 MG VIAL IV SCH ×2 (17:42→20:59)
[2020-07-26] MEDS: fentaNYL INJ 2,500 MCG in SODIUM CHLORIDE 0.9% 450 ML IV PRN (18:47)
[2020-07-26] MEDS: INSULIN GLARGINE 100 UNIT/ML SUBCUT SCH (20:59)
[2020-07-26 21:07] LABS: Hematocrit 25.4 VOL% (35.7-47.0); Hemoglobin 8.5 GM/DL (12.0-16.0)
[2020-07-27] MEDS: INSULIN LISPRO 100 UNIT/ML SUBCUT SCH ×4 (00:37→17:02)
[2020-07-27] MEDS: PIPERACILLIN/TAZOBACTAM 3,375 MG in SODIUM CHLORIDE 0.9% 100 ML IV SCH ×3 (00:38→16:06)
[2020-07-27] MEDS: methylPREDNISolone SOD SUC 40 MG/1 ML VIAL IV SCH ×3 (00:38→16:04)
[2020-07-27] MEDS: SODIUM BICARB INJ 100 MEQ in DEXTROSE 5% 1,000 ML IV SCH ×2 (02:22→09:51)
[2020-07-27 03:19] LABS: Allen Test Positive; Pt O2 Delivery Device Ventilator
[2020-07-27 03:20] LABS: ABG Base Excess -3.4 MMOL/L (-2.5-2.5); ABG HCO3 21.5 MMOL/L (20-26); ABG Oxygen Saturation 91.3 % (95-100); ABG PCO2 59.6 MM HG (35-48); ABG PH 7.224 (7.35-7.45); ABG PO2 73.9 MM HG (80-95); ABG TCO2 23.6 MMOL/L (23-27)
[2020-07-27 03:25] LABS: Hematocrit 23.4 VOL% (35.7-47.0); Hemoglobin 8.1 GM/DL (12.0-16.0)
[2020-07-27] MEDS: PANTOPRAZOLE 40 MG VIAL IV SCH ×2 (09:05→20:25)
[2020-07-27] MEDS: POLYETHYLENE GLYCOL POWDER 17 GM PACK PO SCH (09:06)
[2020-07-27] MEDS: ZINC SULFATE 220 MG CAPSULE PO SCH (09:10)
[2020-07-27] MEDS: CHOLECALCIFEROL 400 UNIT TABLET PO SCH (09:11)
[2020-07-27] MEDS: AMIODARONE 200 MG TABLET PO SCH ×2 (09:11→20:24)
[2020-07-27] MEDS: FLUCONAZOLE 200 MG TABLET PO SCH (09:11)
[2020-07-27] MEDS: ASCORBIC ACID 500 MG TABLET PO SCH (09:11)
[2020-07-27] MEDS: THIAMINE 100 MG TABLET PO SCH (09:12)
[2020-07-27] MEDS: SODIUM BICARBONATE 650 MG TABLET PO SCH ×2 (09:12→20:24)
[2020-07-27] MEDS: METOPROLOL TARTRATE 25 MG TABLET PO SCH ×2 (09:13→20:24)
[2020-07-27 09:56] LABS: Basophils % 0.1 % (0.0-0.8); Hematocrit 24.3 VOL% (35.7-47.0); Hemoglobin 8.3 GM/DL (12.0-16.0); Immature Granulocytes % 3.4 %; Immature Granulocytes Absolute 0.78 #; Lymphocytes # 1.2 10*3/uL (1.4-4.0); Lymphocytes % 5.4 % (21.3-54.2); Mean Corpuscular HGB Conc 34.2 GM/DL (32-36); Mean Platelet Volume 10.9 FL (9.6-12.0); Monocytes % 3.1 % (1.7-12.7); NRBC # 0.18 10*3/uL; Platelet Count 279 T/CUMM (130-400); Red Cell Distribution Width 16.4 % (9.3-17.3); White Blood Count 22.7 T/CUMM (4-12)
[2020-07-27 10:22] LABS: Calcium 8.6 MG/DL (8.5-10.1); Osmolality,Calculated 329.6 MOS/KG (273-304)
[2020-07-27 10:25] LABS: Band Neutrophils 3 % (0-10); Eosinophils 3 % (0-10); Lymphocytes 5 % (20-55); Segmented Neutrophils 86 % (50-85); Total Cells Counted 100
[2020-07-27 10:26] LABS: Hypochromasia 2+; Microcytosis 1+; Tear Drop Cells Few
[2020-07-27 10:27] LABS: Platelet Estimate Normal; Target Cells Slight
[2020-07-27] MEDS: DIGOXIN 0.125 MG TABLET PO SCH (12:46)
[2020-07-27] MEDS: ROCURONIUM 500 MG in SODIUM CHLORIDE 0.9% 500 ML IV PRN (13:36)
[2020-07-27] MEDS: fentaNYL INJ 2,500 MCG in SODIUM CHLORIDE 0.9% 450 ML IV PRN (15:36)
[2020-07-27 16:13] LABS: Hematocrit 21.6 VOL% (35.7-47.0); Hemoglobin 7.5 GM/DL (12.0-16.0)
[2020-07-27] MEDS: INSULIN GLARGINE 100 UNIT/ML SUBCUT SCH (20:24)
[2020-07-27 21:05] LABS: Hematocrit 22.6 VOL% (35.7-47.0); Hemoglobin 7.7 GM/DL (12.0-16.0)
[2020-07-28] MEDS: INSULIN LISPRO 100 UNIT/ML SUBCUT SCH ×4 (00:07→19:09)
[2020-07-28] MEDS: methylPREDNISolone SOD SUC 40 MG/1 ML VIAL IV SCH ×5 (00:08→21:01)
[2020-07-28] MEDS: PIPERACILLIN/TAZOBACTAM 3,375 MG in SODIUM CHLORIDE 0.9% 100 ML IV SCH ×3 (00:09→18:30)
[2020-07-28] MEDS: SODIUM BICARB INJ 100 MEQ in DEXTROSE 5% 1,000 ML IV SCH (00:20)
[2020-07-28 03:23] LABS: ABG Base Excess -2.7 MMOL/L (-2.5-2.5); ABG Oxygen Saturation 90.5 % (95-100); ABG PCO2 68.1 MM HG (35-48); ABG PO2 74.2 MM HG (80-95); ABG TCO2 25.2 MMOL/L (23-27); Pt O2 Delivery Device Ventilator
[2020-07-28 03:48] LABS: ABG PH 7.191 (7.35-7.45)
[2020-07-28 06:26] LABS: Basophils % 0.1 % (0.0-0.8); Hematocrit 22.4 VOL% (35.7-47.0); Hemoglobin 7.7 GM/DL (12.0-16.0); Immature Granulocytes Absolute 0.94 #; Lymphocytes # 1.2 10*3/uL (1.4-4.0); Lymphocytes % 5.1 % (21.3-54.2); Mean Corpuscular HGB Conc 34.4 GM/DL (32-36); Mean Corpuscular Volume 81.5 FL (87-102); Mean Platelet Volume 10.8 FL (9.6-12.0); Monocytes % 2.4 % (1.7-12.7); NRBC # 0.41 10*3/uL; Neutrophils % 88.4 % (38.7-73.9); Platelet Count 268 T/CUMM (130-400); Red Blood Count 2.75 MC/CUMM (3.8-5.5); Red Cell Distribution Width 16.4 % (9.3-17.3); White Blood Count 23.4 T/CUMM (4-12)
[2020-07-28 06:53] LABS: Calcium 8.3 MG/DL (8.5-10.1); Osmolality,Calculated 331.8 MOS/KG (273-304)
[2020-07-28 07:09] LABS: Band Neutrophils 3 % (0-10); Lymphocytes 7 % (20-55); Nucleated Red Blood Cells 4 (0-5); Segmented Neutrophils 90 % (50-85); Total Cells Counted 100
[2020-07-28 07:10] LABS: Hypochromasia 1+; Microcytosis 1+; Target Cells Slight
[2020-07-28 07:11] LABS: Platelet Estimate Normal; Tear Drop Cells Few
[2020-07-28] MEDS: POLYETHYLENE GLYCOL POWDER 17 GM PACK PO SCH (08:49)
[2020-07-28] MEDS: ZINC SULFATE 220 MG CAPSULE PO SCH (08:50)
[2020-07-28] MEDS: ASCORBIC ACID 500 MG TABLET PO SCH (08:50)
[2020-07-28] MEDS: SODIUM BICARBONATE 650 MG TABLET PO SCH ×2 (08:50→20:53)
[2020-07-28] MEDS: FLUCONAZOLE 200 MG TABLET PO SCH (08:52)
[2020-07-28] MEDS: METOPROLOL TARTRATE 25 MG TABLET PO SCH ×2 (08:52→20:53)
[2020-07-28] MEDS: THIAMINE 100 MG TABLET PO SCH (08:53)
[2020-07-28] MEDS: CHOLECALCIFEROL 400 UNIT TABLET PO SCH (08:53)
[2020-07-28] MEDS: PANTOPRAZOLE 40 MG VIAL IV SCH ×2 (09:23→20:52)
[2020-07-28] MEDS ORDERED: FUROSEMIDE 40 MG/4 ML VIAL IV ONE (09:34)
[2020-07-28] MEDS ORDERED: FUROSEMIDE 40 MG/4 ML VIAL ONE (09:52)
[2020-07-28] MEDS ORDERED: PNEUMOCOCCAL VACCINE (13 VALENT) 0.5 ML SYRINGE IM ONE (10:00)
[2020-07-28] MEDS ORDERED: SODIUM CHLORIDE 0.9% 1,000 ML IV PRN (11:06)
[2020-07-28] MEDS: fentaNYL INJ 2,500 MCG in SODIUM CHLORIDE 0.9% 450 ML IV PRN (13:15)
[2020-07-28] MEDS: DIGOXIN 0.125 MG TABLET PO SCH (13:27)
[2020-07-28 16:42] VITALS: BP 134/67
[2020-07-28] MEDS: METOCLOPRAMIDE 10 MG/2 ML VIAL IV SCH (18:20)
[2020-07-28] MEDS: INSULIN GLARGINE 100 UNIT/ML SUBCUT SCH (20:53)
[2020-07-28 21:15] LABS: Hematocrit 25.4 VOL% (35.7-47.0)
[2020-07-28 21:16] LABS: Hemoglobin 8.7 GM/DL (12.0-16.0)
[2020-07-29] MEDS: INSULIN LISPRO 100 UNIT/ML SUBCUT SCH ×4 (00:05→17:40)
[2020-07-29] MEDS: PIPERACILLIN/TAZOBACTAM 3,375 MG in SODIUM CHLORIDE 0.9% 100 ML IV SCH ×3 (00:55→17:18)
[2020-07-29] MEDS: METOCLOPRAMIDE 10 MG/2 ML VIAL IV SCH ×2 (00:55→06:31)
[2020-07-29] MEDS: methylPREDNISolone SOD SUC 40 MG/1 ML VIAL IV SCH ×4 (04:03→21:01)
[2020-07-29 04:20] LABS: ABG Base Excess -1.7 MMOL/L (-2.5-2.5); ABG HCO3 22.9 MMOL/L (20-26); ABG Oxygen Saturation 97.5 % (95-100); ABG PCO2 59.7 MM HG (35-48); ABG PH 7.248 (7.35-7.45); ABG TCO2 24.8 MMOL/L (23-27); Allen Test Positive; Pt O2 Delivery Device Ventilator
[2020-07-29 06:40] LABS: Basophils % 0.2 % (0.0-0.8); Hematocrit 23.1 VOL% (35.7-47.0); Hemoglobin 7.9 GM/DL (12.0-16.0); Immature Granulocytes % 4.1 %; Immature Granulocytes Absolute 0.89 #; Lymphocytes % 4.7 % (21.3-54.2); Mean Corpuscular HGB Conc 34.2 GM/DL (32-36); Mean Corpuscular Volume 82.8 FL (87-102); Mean Platelet Volume 11.2 FL (9.6-12.0); Monocytes % 1.8 % (1.7-12.7); NRBC # 0.61 10*3/uL; Neutrophils % 89.2 % (38.7-73.9); Platelet Count 236 T/CUMM (130-400); Red Blood Count 2.79 MC/CUMM (3.8-5.5); Red Cell Distribution Width 16.5 % (9.3-17.3); White Blood Count 21.6 T/CUMM (4-12)
[2020-07-29 07:23] LABS: Ferritin 981.2 ng/ml (8-252)
[2020-07-29 07:42] LABS: Calcium 8.2 MG/DL (8.5-10.1); Osmolality,Calculated 338.6 MOS/KG (273-304)
[2020-07-29] MEDS: PANTOPRAZOLE 40 MG VIAL IV SCH ×2 (08:35→21:00)
[2020-07-29] MEDS: CHOLECALCIFEROL 400 UNIT TABLET PO SCH (08:46)
[2020-07-29] MEDS: SODIUM BICARBONATE 650 MG TABLET PO SCH ×2 (08:46→21:01)
[2020-07-29] MEDS: THIAMINE 100 MG TABLET PO SCH (08:46)
[2020-07-29] MEDS: ZINC SULFATE 220 MG CAPSULE PO SCH (08:46)
[2020-07-29] MEDS: ASCORBIC ACID 500 MG TABLET PO SCH (08:46)
[2020-07-29] MEDS: METOPROLOL TARTRATE 25 MG TABLET PO SCH ×2 (08:46→21:01)
[2020-07-29] MEDS: POLYETHYLENE GLYCOL POWDER 17 GM PACK PO SCH (08:46)
[2020-07-29 08:54] LABS: Uric Acid 10.6 MG/DL (2.6-6.0)
[2020-07-29 09:06] LABS: Band Neutrophils 2 % (0-10); Lymphocytes 1 % (20-55); Segmented Neutrophils 97 % (50-85); Total Cells Counted 100
[2020-07-29 09:07] LABS: Microcytosis 2+; Platelet Estimate Normal; Polychromasia Slight; Target Cells 1+
[2020-07-29 09:08] LABS: Ovalocytes 1+; Tear Drop Cells 2+
[2020-07-29] MEDS ORDERED: SODIUM CHLORIDE 0.9% 1,000 ML IV SCH (10:00)
[2020-07-29] MEDS: ENOXAPARIN 100 MG/ML SYRINGE SUBCUT SCH (10:30)
[2020-07-29] MEDS: LACTULOSE 20 GM/30 ML UDCUP PO SCH ×2 (10:30→21:01)
[2020-07-29] MEDS: DIGOXIN 0.125 MG TABLET PO SCH (12:15)
[2020-07-29 16:06] LABS: Calcium 8.5 MG/DL (8.5-10.1); Osmolality,Calculated 342.4 MOS/KG (273-304)
[2020-07-29] MEDS ORDERED: SODIUM CHLORIDE 0.9% 500 ML IV ONE (16:11)
[2020-07-29] MEDS: SODIUM CHLORIDE 0.45% 1,000 ML IV SCH (17:19)
[2020-07-29] MEDS: fentaNYL INJ 2,500 MCG in SODIUM CHLORIDE 0.9% 450 ML IV PRN (19:01)
[2020-07-29 20:55] LABS: Hematocrit 23.4 VOL% (35.7-47.0); Hemoglobin 7.8 GM/DL (12.0-16.0)
[2020-07-29] MEDS: INSULIN GLARGINE 100 UNIT/ML SUBCUT SCH (21:02)
[2020-07-30] MEDS: INSULIN LISPRO 100 UNIT/ML SUBCUT SCH ×5 (00:02→23:49)
[2020-07-30] MEDS: PIPERACILLIN/TAZOBACTAM 3,375 MG in SODIUM CHLORIDE 0.9% 100 ML IV SCH ×2 (00:23→10:14)
[2020-07-30] MEDS: SODIUM CHLORIDE 0.45% 1,000 ML IV SCH ×4 (03:57→16:59)
[2020-07-30 04:28] LABS: Basophils # 0.1 10*3/uL (0.0-0.2); Basophils % 0.2 % (0.0-0.8); Hematocrit 23.5 VOL% (35.7-47.0); Hemoglobin 7.8 GM/DL (12.0-16.0); Immature Granulocytes % 4.3 %; Immature Granulocytes Absolute 1.06 #; Lymphocytes # 1.3 10*3/uL (1.4-4.0); Mean Corpuscular HGB Conc 33.2 GM/DL (32-36); Mean Corpuscular Volume 83.9 FL (87-102); Mean Platelet Volume 11.4 FL (9.6-12.0); Monocytes % 2.6 % (1.7-12.7); Neutrophils % 87.9 % (38.7-73.9); Platelet Count 247 T/CUMM (130-400); Red Cell Distribution Width 16.4 % (9.3-17.3); White Blood Count 24.9 T/CUMM (4-12)
[2020-07-30 04:57] LABS: ABG Base Excess -3.1 MMOL/L (-2.5-2.5); ABG HCO3 24.4 MMOL/L (20-26); ABG Oxygen Saturation 95.1 % (95-100); ABG PCO2 58.9 MM HG (35-48); ABG PH 7.236 (7.35-7.45); ABG PO2 92.1 MM HG (80-95); ABG TCO2 26.3 MMOL/L (23-27); Allen Test Positive; Pt O2 Delivery Device Ventilator
[2020-07-30] MEDS: methylPREDNISolone SOD SUC 40 MG/1 ML VIAL IV SCH ×4 (04:58→21:05)
[2020-07-30 05:13] LABS: Calcium 8.4 MG/DL (8.5-10.1); Osmolality,Calculated 343.4 MOS/KG (273-304)
[2020-07-30 07:16] LABS: Band Neutrophils 1 % (0-10); Lymphocytes 6 % (20-55); Metamyelocytes 2 %; Nucleated Red Blood Cells 2 (0-5); Segmented Neutrophils 89 % (50-85); Total Cells Counted 100
[2020-07-30 07:17] LABS: Hypochromasia 1+; Platelet Estimate Normal; Polychromasia Slight
[2020-07-30] MEDS ORDERED: SODIUM PHOSPHATE ENEMA 133 ML BOTTLE RECTAL ONE (09:34)
[2020-07-30] MEDS: METOPROLOL TARTRATE 25 MG TABLET PO SCH ×3 (10:11→22:29)
[2020-07-30] MEDS: LACTULOSE 20 GM/30 ML UDCUP PO SCH ×2 (10:11→21:06)
[2020-07-30] MEDS: THIAMINE 100 MG TABLET PO SCH (10:12)
[2020-07-30] MEDS: CHOLECALCIFEROL 400 UNIT TABLET PO SCH (10:12)
[2020-07-30] MEDS: POLYETHYLENE GLYCOL POWDER 17 GM PACK PO SCH (10:12)
[2020-07-30] MEDS: ASCORBIC ACID 500 MG TABLET PO SCH (10:13)
[2020-07-30] MEDS: ZINC SULFATE 220 MG CAPSULE PO SCH (10:13)
[2020-07-30] MEDS: SODIUM BICARBONATE 650 MG TABLET PO SCH ×2 (10:14→21:05)
[2020-07-30] MEDS: ENOXAPARIN 100 MG/ML SYRINGE SUBCUT SCH (10:16)
[2020-07-30 10:20] LABS: Hematocrit 22.6 VOL% (35.7-47.0); Hemoglobin 7.7 GM/DL (12.0-16.0)
[2020-07-30] MEDS: PANTOPRAZOLE 40 MG VIAL IV SCH ×2 (10:21→21:05)
[2020-07-30 11:26] LABS: Bacteria,Urine Occasional /HPF (Few); Bilirubin,Urine Negative (Negative); Blood, Urine Moderate mg/dL (Negative); Glucose,Urine (UA) Negative (Negative); Ketones,Urine Negative (Negative); Mucus,Urine Occasional /LPF (Occasional); Nitrite,Urine Negative (Negative); Protein,Urine Negative; RBC,Urine 7 /HPF (0-4); Squamous Epithelial Cell,Urine Occasional /HPF (0-10); Urine Appearance Slightly Hazy (Clear); Urine Color Yellow (Yellow); Urine Specific Gravity 1.016 (1.001-1.035); Urine Urobilinogen < 2.0 EU/DL (0.2-1.0); WBC,Urine 3 /HPF (0-6)
[2020-07-30] MEDS: DIGOXIN 0.125 MG TABLET PO SCH (13:18)
[2020-07-30] MEDS ORDERED: HEPARIN 5,000 UNIT/1 ML VIAL SUBCUT SCH (17:00)
[2020-07-30] MEDS: PHENYLEPHRINE DRIP 40 MG/250 ML PREMIX IV PRN (21:03)
[2020-07-30] MEDS: INSULIN GLARGINE 100 UNIT/ML SUBCUT SCH (21:06)
[2020-07-30 23:16] LABS: ABG Base Excess -15.8 MMOL/L (-2.5-2.5); ABG HCO3 12.1 MMOL/L (20-26); ABG Oxygen Saturation 92.8 % (95-100); ABG PCO2 58.6 MM HG (35-48); ABG TCO2 14.9 MMOL/L (23-27); Glucose Heart Surgery 70 MG/DL (74-106); Hematocrit Heart Surgery 23.4 PERCENT (37-47); Hemoglobin Heart Surgery 7.5 G/DL (12.0-16.0)
[2020-07-30 23:17] LABS: ABG PH 7.012 (7.35-7.45); Potassium Heart/CVR 6.6 MMOL/L (3.5-5.1)
[2020-07-30] MEDS ORDERED: SODIUM BICARBONATE 50 MEQ/50 ML VIAL IV ONE (23:23)
[2020-07-30] MEDS ORDERED: DEXTROSE 50% 25 GM/50 ML VIAL IV ONE (23:26)
== END 2020-07-31 00:26 | disposition expired | DRG 207 ==
LOC: EDBD → EDUNIT# → N.ED 17:13 → SUATTDRO 19:47 → N.EDINP 19:47 → N.2E 21:35 → N.CC 07-16 10:50
PROVIDERS: ADMIT Internal Medicine; ATTEND Internal Medicine